=== PATIENT | male | born 1940 | race Caucasian/White ===

== ENCOUNTER → 2019-01-22 | Outpatient (CLI) | payer MEDICARE, OTHER ==
--- NOTE | 2019-01-22 15:08 | Diagnostic Imaging Report ---
PROCEDURE: MRI left upper extremity without contrast. TECHNIQUE: Multiplanar, multisequence non contrast-enhanced MRI of the left upper extremity was accomplished. INDICATION: Fall three and a half months ago with left shoulder pain COMPARISON: None FINDINGS: No acute fracture is seen in the left shoulder. There is a small left glenohumeral joint effusion. There are severe degenerative changes in the acromioclavicular joint. There are mild degenerative changes in the glenohumeral joint. There is superior migration of the humeral head which contacts the undersurface of the acromion. There is remodeling of the undersurface of the acromion. There is a large full-thickness rotator cuff tear of the left shoulder involving the supraspinatus and infraspinatus and subscapularis tendons, measuring approximately 5 cm in width. There is retraction to the level of the glenohumeral joint. There is moderate edema in the infraspinatus muscle and mild in the supraspinatus muscle. There is mild atrophy of the supraspinatus and infraspinatus musculature as well. The teres minor tendon is intact. The long head of the biceps tendon demonstrates longitudinal split tearing proximally, but is within the bicipital groove. The glenoid labrum is suboptimally evaluated in the absence of intra-articular contrast although there is likely degeneration. No para-labral cyst is seen. The acromion has a curved undersurface with subacromial remodeling/osteophyte. The coracoclavicular and coracoacromial ligaments are intact. No lymphadenopathy or fluid collections are seen. IMPRESSION: 1. Large full-thickness left rotator cuff tear with retraction. There is edema and atrophy in the supraspinatus and infraspinatus musculature. 2. Superior migration of the humeral head with subacromial remodeling/spurring. Marked degenerative changes in the acromioclavicular joint. 3. Short segment longitudinal split tearing of the proximal long head of the biceps tendon. Dictated by: Dictated on workstation # [id number]
== END ==
LOC: RAD 13:01
PROVIDERS: ATTEND Pediatrics
DX: S46.012A Strain of muscle(s) and tendon(s) of the rotator cuff of left shoulder, initial encounter (principal); S46.112A Strain of muscle, fascia and tendon of long head of biceps, left arm, initial encounter; M19.012 Primary osteoarthritis, left shoulder
CPT/HCPCS: 73221

== ENCOUNTER 2022-06-07 13:33 | Emergency (ER) | payer MEDICARE, OTHER ==
[~2022-06-07] VITALS: Ht 175.3 cm; Wt 75.7 kg
--- NOTE | 2022-06-07 13:46 | ED Fall/Injury ---
General Chief Complaint: Trauma-Non Activation Stated Complaint: FALL History of Present Illness Date Seen by Provider: Jun 07, 2022 Time Seen by Provider: 13:46 Initial Comments 81-year-old male presents following a fall. Patient reports he was walking and tripped over a curb fell and hit his head. He has small little laceration across the bridge of his nose. Small laceration above his left eyelid with some swelling and multiple abrasions across his left forehead and periorbital region. Patient denies loss of consciousness. He reports little bit of pain in his left hand but feels that it is fine. Patient denies any nausea, vomiting or other systemic complaints Allergies and Home Medications Allergies Coded Allergies: No Known Drug Allergies (Unverified , 06/07/22) Patient Home Medication List Home Medication List Reviewed: Yes Review of Systems Review of Systems Constitutional: no symptoms reported Eyes: See HPI Ears, Nose, Mouth, Throat: see HPI Respiratory: no symptoms reported Cardiovascular: no symptoms reported Gastrointestinal: no symptoms reported Genitourinary: no symptoms reported Musculoskeletal: see HPI Skin: see HPI Physical Exam Vital Signs Vital Signs - First Documented Capillary Refill : Height, Weight, BMI Height: '" Weight: lbs. oz. kg; BMI Method: General Appearance: no apparent distress HEENT: PERRL/EOMI, other (Small laceration/puncture wound across the bridge of the nose) Neck: non-tender, full range of motion, supple Cardiovascular: normal peripheral pulses, regular rate, rhythm Respiratory: chest non-tender, lungs clear, normal breath sounds Gastrointestinal: non tender, soft Extremities: normal range of motion, non-tender Neurologic/Psychiatric: alert, normal mood/affect, oriented x 3 Skin: other (Multiple large abrasions left forehead and periorbital region with swelling) Rafael Coma Score Best Eye Response: (4) Open Spontaneously Best Verbal Response: (5) Oriented Best Motor Response: (6) Obeys Commands Procedures/Interventions Wound Location: Nose Wound's Depth, Shape: superficial, stellate Wound Explored: clean Betadine Prep?: No Wound Debrided: minimal Other Closure Supply: Wound Adhesive Patient tolerated well with no immediate complication Progress/Results/Core Measures Results/Orders My Orders Orders - ANTONIA NICHOLS DO Ct Head Wo (06/07/22 13:52) Vital Signs/I&O 06/07/22 06/07/22 13:35 13:35 Temp 36.0 36.0 Pulse 65 65 Resp 18 18 B/P (MAP) 159/77 (104) 159/77 (104) Pulse Ox 99 O2 Delivery Room Air Room Air Progress Progress Note : Progress Note Patient with no acute intracranial findings. Patient with small laceration bridge of his nose that was closed with adhesive. . Patient declined x-ray of his hand. Patient is ready be discharged home. He is stable upon discharge Diagnostic Imaging Diagonstic Imaging: CT Plain Films/CT/US/NM/MRI: head Comments CT HEAD WO INDICATION: Fall, with injury to head, patient is on blood thinners. TECHNIQUE: Multiple contiguous axial images were obtained through the brain without the use of intravenous contrast. Auto Exposure Controls were utilized during the CT exam to meet ALARA standards for radiation dose reduction. There is no previous study for comparison. FINDINGS: There are diffuse atrophic changes. There are moderate low-density changes in the deep white matter compatible with chronic ischemic change. There is no subdural or epidural collection. There is no acute intracranial hemorrhage. There are chronic changes with multiple calcifications in atrophic right globe. Calvarial windows show no fracture. There is a left frontal scalp hematoma. IMPRESSION: Atrophic changes and chronic ischemic changes in the deep white matter. No acute intracranial hemorrhage or acute intracranial finding. Atrophic right globe with chronic calcifications. Left frontal scalp hematoma with no underlying fracture. Reviewed: Reviewed by Me, Reviewed/Discussed Departure Impression Primary Impression: Traumatic hematoma of forehead Qualified Codes: S00.83XA - Contusion of other part of head, initial encoun ter Additional Impressions: Fall Qualified Codes: W19.XXXA - Unspecified fall, initial encounter Multiple abrasions Laceration of nose without complication Qualified Codes: S01.21XA - Laceration without foreign body of nose, initial encounter Disposition: HOME, SELF-CARE Condition: Stable Departure-Patient Inst. Referrals: LESLYE MOONEY MD (PCP/Family) Primary Care Physician Patient Instructions: Abrasions ED, Wound Care ED, Minor Head Injury, Adult ED Add. Discharge Instructions: Keep wounds clean with warm soapy water. You may use Dermoplast spray on your abrasions to help with pain, you may apply thin layer of Vaseline after 24- hours. Follow-up with your primary care provider as needed All discharge instructions reviewed with patient and/or family. Voiced understanding. ANTONIA NICHOLS DO Jun 07, 2022 13:46
--- NOTE | 2022-06-07 14:30 | Diagnostic Imaging Report ---
INDICATION: Fall, with injury to head, patient is on blood thinners. TECHNIQUE: Multiple contiguous axial images were obtained through the brain without the use of intravenous contrast. Auto Exposure Controls were utilized during the CT exam to meet ALARA standards for radiation dose reduction. There is no previous study for comparison. FINDINGS: There are diffuse atrophic changes. There are moderate low-density changes in the deep white matter compatible with chronic ischemic change. There is no subdural or epidural collection. There is no acute intracranial hemorrhage. There are chronic changes with multiple calcifications in atrophic right globe. Calvarial windows show no fracture. There is a left frontal scalp hematoma. IMPRESSION: Atrophic changes and chronic ischemic changes in the deep white matter. No acute intracranial hemorrhage or acute intracranial finding. Atrophic right globe with chronic calcifications. Left frontal scalp hematoma with no underlying fracture. Dictated by: Dictated on workstation # [id number]
[2022-06-07 14:50] VITALS: BP 139/97
== END 2022-06-07 14:50 | disposition home or self-care (01) ==
LOC: EDUNIT# 13:33 → ER FS 13:34
DX: S01.21XA Laceration without foreign body of nose, initial encounter (principal); W01.0XXA Fall on same level from slipping, tripping and stumbling without subsequent striking against object, initial encounter; Y93.01 Activity, walking, marching and hiking
CPT/HCPCS: 70450

== ENCOUNTER 2022-08-15 13:36 | Emergency (ER) | payer MEDICARE, OTHER ==
[~2022-08-15] VITALS: Ht 175 cm; Wt 75.0 kg
[2022-08-15 13:44] VITALS: BP 144/72
--- NOTE | 2022-08-15 13:55 | ED Fall/Injury ---
General Chief Complaint: Laceration Stated Complaint: NASAL LAC Source: patient History of Present Illness Date Seen by Provider: Aug 15, 2022 Time Seen by Provider: 13:40 Initial Comments 81-year-old male presenting with abrasions to his face and laceration to his upper part of his nose. He was golfing and while walking down a sloped decline on the course he had a heavy window behind him head made him go faster down the slope and he ended up tripping and falling. His sunglasses he was wearing had cut into his nose. He denies any loss of consciousness. 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 He has not taken an oral anticoagulant. His last tetanus booster was 6 to 7 years ago. He denies having any other pain or injuries in his extremities, chest, belly. He denies having headache or neck pain. He has some discomfort to the face and nose where the cut is. Bleeding is controlled on arrival to the ED. Location Injury Occurred: Golf course Occurred: just prior to arrival Severity: mild Injuries/Pain Location: face (Abrasions to forehead and nose with laceration on the upper part of his nose.) Context: lost balance Loss of Consciousness: no loss of consciousness Modifying Factors: Worse With Movement Associated Symptoms (Fall): No Abdominal Pain, No Chest Pain, No Confusion, No Dizziness, No Headache, No Lightheadedness, No Muscle Spasms, No Nausea/Vomiting, No Neck Pain, No Ringing in Ears, No Seizures, No Shortness of Air, No Slurred Speech, No Trouble Walking, No Vision Changes Allergies and Home Medications Allergies Coded Allergies: No Known Drug Allergies (Unverified , 06/07/22) Patient Home Medication List Home Medication List Reviewed: Yes Review of Systems Review of Systems Constitutional: No chills, No diaphoresis, No dizziness, No fever Eyes: Blindness (Chronic in the right eye); Denies Photophobia, Denies Vision Changes Ears, Nose, Mouth, Throat: denies ear pain, denies ear discharge; nose pain (Mild pain to the top of his nose where he has a laceration.); denies nose discharge, denies epistaxis, denies mouth pain Respiratory: No cough, No short of breath Cardiovascular: No chest pain Gastrointestinal: No nausea, No vomiting Genitourinary: No dysuria Musculoskeletal: No back pain, No joint pain, No neck pain Skin: see HPI Psychiatric/Neurological: Denies Headache, Denies Numbness, Denies Paresthesia Past Natqipx-Drdmzx-Pallqb Hx Patient Social History Tobacco Use?: No Use of E-Cig and/or Vaping dev: No Substance use?: No Alcohol Use?: No Pt feels they are or have been: Unable to obtain Past Medical History Surgery/Hospitalization HX: Hyperlipidemia, hypertension Physical Exam Vital Signs Vital Signs - First Documented 08/15/22 13:44 Temp 36.4 Pulse 79 Resp 16 B/P (MAP) 144/72 (96) Pulse Ox 96 O2 Delivery Room Air Capillary Refill : Height, Weight, BMI Height: '" Weight: lbs. oz. kg; 24.00 BMI Method: General Appearance: WD/WN, no apparent distress, other (Abrasions on his forehead and nose with a 1.7 cm laceration to the top of his nose. He has no sims sign, raccoon sign, CSF otorrhea, CSF rhinorrhea.) HEENT: TMs normal; No photophobia; other (Negative hemotympanum, chronic blindness in the right eye with scarring left pupil was reactive and patient states normal vision) Neck: non-tender, full range of motion, supple, normal inspection Cardiovascular: normal peripheral pulses, regular rate, rhythm Respiratory: chest non-tender, lungs clear, normal breath sounds Gastrointestinal: normal bowel sounds, non tender, soft, no pulsatile mass Extremities: normal range of motion, non-tender, normal capillary refill Neurologic/Psychiatric: decorating instructor II-XII nml as tested, no motor/sensory deficits, alert, normal mood/affect, oriented x 3 Skin: warm/dry, other (Multiple abrasions to the forehead and nose with a 1.7 cm laceration to the upper part of his nose. When cleaning his hands noted to have 8 mm laceration to the base of his middle finger on the right hand between the middle and ring fingers.) Rafael Coma Score Best Eye Response: (4) Open Spontaneously Best Verbal Response: (5) Oriented Best Motor Response: (6) Obeys Commands Rafael Total: 15 Procedures/Interventions Wound Location: Nose Wound Length (cm): 1.7 Wound's Depth, Shape: linear, contused tissue, sub Q Wound Explored: clean Other Closure Supply: Steri Strip 1/4", Mastisol, Wound Adhesive Progress After obtaining verbal consent from the patient the wound was cleaned with chlor hexidine scrub soap and sterile water. He had no foreign bodies visualized in the wound. He does not have any crepitus or pain with palpation of the nose to indicate a fracture. He denied having a loss of consciousness. Bleeding was controlled with pressure after cleaning. Using tissue adhesive the wound edges were approximated and stay well approximated with glue. Also applied Mastisol with 2 1/4 inch Steri-Strips over the wound to help give it extra support. Counseled on management and follow-up. Advised to avoid applying antibiotic ointment or greasy products as that would make the glue come off too early. Counseled to watch for signs of infection. Check back to clinic for continued concerns. Wound Location: Upper Extremities (right hand base of middle finger between middle and ring fingers) Wound Length (cm): 0.8 Wound's Depth, Shape: linear, contused tissue, sub Q Wound Explored: clean Anesthesia: 1% Lidocaine Volume Anesthetic (ccs): 2 Suture: Ethlion Suture Size: 5-0 Number of Sutures: 2 Layer Closure?: 1 Sterile Dressing Applied?: Yes Progress After obtaining verbal consent from the patient the wound was anesthetized with 1% plain lidocaine by infiltrating a total of 2 mL in the wound edges. The wound was then further cleaned with chlorhexidine scrub soap and sterile water. He had no foreign bodies. Using a 5-0 Ethilon 2 simple interrupted stitches were placed to approximate the wound edges. Patient tolerated procedure well without any immediate complication. Counseled on management and care of the laceration. Advised to have the stitches removed in 7 to 10 days. Watch for signs of infection. Keep clean with soap and water but do not soak the wound. May apply antibiotic ointment and keep covered if it might get dirty. Progress/Results/Core Measures Results/Orders My Orders Orders - ALECIA KRISHNA MD Dipht,Pertuss(Acell),Tet Adult (Boostrix (08/15/22 14:00) Medications Given in ED Current Medications Medications Dose Ordered Sig/Ford Route Start Time Stop Time Status Last Admin Dose Admin Diphtheria/ Tetanus/Acell Pertussis 0.5 ml ONCE ONCE IM 08/15/22 14:00 08/15/22 14:01 DC 2/6/23 13:54 0.5 ML Vital Signs/I&O 08/15/22 13:44 Temp 36.4 Pulse 79 Resp 16 B/P (MAP) 144/72 (96) Pulse Ox 96 O2 Delivery Room Air Progress Progress Note : Progress Note Patient has potential diagnosis of facial fracture, intracranial hemorrhage, skull fracture, extremity fracture. On exam he had abrasions to his face and nose with a 1.7 cm laceration on the top of his nose. We will update his tetanus booster since he has not had 1 within the last 5 years. Clean the wound with chlorhexidine scrub soap and sterile water. Verbal consent obtained to apply tissue adhesive and Steri- Strips to approximate the wound edges on his nose. When cleaning his hands it was noted that he also had a small laceration between his right ring and middle fingers. As this wound does gape open he was counseled that without stitches it would have an increased risk for infection and bleeding and take longer to heal. He consented to placing stitches and counseled to have them out in 7 to 10 days. May return here to ED or see pcp. Return or be seen sooner if having signs of infection. As he was not taking an oral anticoagulant will defer CT scan of head, face or cervical spine. Return or be seen sooner if having headache, vision change, nausea/vomiting. Departure Impression Primary Impression: Laceration of nose without complication Qualified Codes: S01.21XA - Laceration without foreign body of nose, initial encounter Additional Impressions: Abrasion of face without infection Fall on same level, unspecified, initial encounter Laceration without foreign body of right hand, initial encounter Disposition: 01 HOME, SELF-CARE Condition: Stable Departure-Patient Inst. Decision time for Depature: 14:08 Referrals: LESLYE MOONEY MD (PCP) Primary Care Physician Patient Instructions: Laceration Repair With Glue ED, Abrasions ED, Laceration Repair With Stitches ED Add. Discharge Instructions: Keep wounds clean with soap and water. May apply antibiotic ointment to the forehead abrasions but do NOT apply to the glue on your cut on the nose. The ointment will make the glue come off too soon and the wound may reopen. The glue and surgical tape will peel off on their own in about 5 to 7 days. Ice 20-30 minutes every few hours as needed for pain and swelling. May take Acetaminophen or Ibuprofen if needed for pain. Check back with primary care provider for continued concerns. Have the stitches removed from hand in 7 to 10 days with primary care provider or here in Emergency department. All discharge instructions reviewed with patient and/or family. Voiced understanding. ALECIA KRISHNA MD Aug 15, 2022 13:55
[2022-08-15] MEDS ORDERED: TETANUS,DIPTH,PERTUSS P/F (BOOSTRIX) 0.5 ML VIAL IM ONE (14:00)
== END 2022-08-15 14:35 | disposition home or self-care (01) ==
LOC: EDUNIT# 13:36 → ER FS 13:37
DX: S01.21XA Laceration without foreign body of nose, initial encounter (principal); S61.212A Laceration without foreign body of right middle finger without damage to nail, initial encounter; S00.81XA Abrasion of other part of head, initial encounter; H54.61 Unqualified visual loss, right eye, normal vision left eye; Z23 Encounter for immunization; W01.0XXA Fall on same level from slipping, tripping and stumbling without subsequent striking against object, initial encounter; Y93.01 Activity, walking, marching and hiking; Y92.39 Other specified sports and athletic area as the place of occurrence of the external cause
CPT/HCPCS: 12011; 12041; 90715

== ENCOUNTER 2023-01-11 12:54 | Emergency (ER) | payer MEDICARE, OTHER ==
[~2023-01-11] VITALS: Ht 175.3 cm; Wt 68.0 kg
[2023-01-11] MEDS ORDERED: ONDANSETRON 4 MG/2 ML (SDV) Z0FRAN IVP STA (13:19)
[2023-01-11] MEDS ORDERED: ACETAMINOPHEN 325 MG TABLET PO STA (13:19)
[2023-01-11] MEDS ORDERED: NS IV 1000 ML 1,000 ML IV STA ×2 (13:21→14:19)
[2023-01-11 13:26] LABS: BASOPHILS % (AUTO) 0 % (0-10); EOSINOPHILS % (AUTO) 0 % (0-10); HEMATOCRIT 45 % (40-54); HEMOGLOBIN 15.7 g/dL (13.3-17.7); LYMPHOCYTES # (AUTO) 0.5 10^3/uL (1.0-4.0); LYMPHOCYTES % (AUTO) 4 % (12-44); MEAN CORPUSCULAR HEMOGLOBIN 30 pg (25-34); MEAN CORPUSCULAR HGB CONC 35 g/dL (32-36); MEAN CORPUSCULAR VOLUME 86 fL (80-99); MEAN PLATELET VOLUME 10.3 fL (9.0-12.2); MONOCYTES # (AUTO) 0.6 10^3/uL (0.0-1.0); MONOCYTES % (AUTO) 5 % (0-12); NEUTROPHILS # (AUTO) 12.5 10^3/uL (1.8-7.8); NEUTROPHILS % (AUTO) 91 % (42-75); PLATELET COUNT 238 10^3/uL (130-400); WHITE BLOOD COUNT 13.7 10^3/uL (4.3-11.0)
--- NOTE | 2023-01-11 13:34 | ED General ---
General Chief Complaint: General Problems/Pain Stated Complaint: GEN WEAKNESS; AMS Nursing Triage Note: PT AMBULATE FROM PARKING LOT TO WAITING ROOM AND THEN W/C TO PT ROOM WITH C/O LACK OF ENERGY FOR "SEVERAL MONTHS", GENERAL WEAKNESS AND DIFFICULTY VERBALLY EXPRESSING HIMSELF "FOR A FEW WEEKS" AND AN UNSTEADY GAIT STARTING THIS MORNING. PT REPORTS HE HAS A REGULAR APPT WITH PCP ON 02/11/23 AND WAS GOING TO WAIT UNTIL THEN TO DISCUSS GEN WEAKNESS. REPORTS PT HAS BEEN LOSING WEIGHT OVER THE PREVIOUS SEVERAL MONTHS. Source of Information: Patient, Spouse History of Present Illness Date Seen by Provider: Jan 11, 2023 Time Seen by Provider: 12:55 Initial Comments 82-year-old male presenting with his spouse to the emergency department. She complains that he has had generalized weakness and lack of energy for several months. For the last few days to few weeks he has been having difficulty verbally expressing himself. He has a more unsteady gait today. She denies any fall in the last few days. She feels like he has had a weight loss over the last several months. They have an appointment to see Dr. Mooney, his primary care provider, on February 11. They were going to wait until then to discuss the general weakness but when he was doing worse today they brought him to the emergency department. He was noted that he has a fever of 38.3 Celsius here in the emergency department. Otherwise he denies fever and chills at home, nausea, vomiting, diarrhea, constipation, pain with urination, blood in his urine or stool, fall preceding the symptoms. He is slow to answer questions. He is hard of hearing but appears to have a hearing aid in place. He denies having chest pain, abdominal pain, headache, change in vision. 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 Severity: Moderate Associated Systoms: No Chest Pain, No Cough, No Diaphoresis; Fever/Chills (today in ED temp of 38.3 C); No Headaches; Loss of Appetite, Malaise; No Nausea/Vomiting, No Rash, No Seizure, No Shortness of Air, No Syncope; Weakness (generalized) Allergies and Home Medications Allergies Coded Allergies: No Known Drug Allergies (Unverified , 06/07/22) Patient Home Medication List Home Medication List Reviewed: Yes Review of Systems Review of Systems Constitutional: see HPI; No chills, No diaphoresis; fever, malaise, weakness EENTM: No nose congestion, No throat pain Respiratory: No cough, No short of breath, No stridor Cardiovascular: No chest pain, No edema, No syncope Gastrointestinal: No abdominal pain, No constipation, No diarrhea, No nausea, No vomiting Genitourinary: No dysuria, No frequency, No hematuria Musculoskeletal: no symptoms reported Skin: No rash Psychiatric/Neurological: See HPI; Denies Headache Past Sshfosx-Tcehtn-Ikywxw Hx Patient Social History Tobacco Use?: No Smoking Status: Never a Smoker Smokeless Tobacco Frequency: Never a User Use of E-Cig and/or Vaping dev: No Use of E-Cig and/or Vaping Zeus: Never a User Substance use?: No Alcohol Use?: Yes Alcohol type: Beer Alcohol Frequency: Once in a while Pt feels they are or have been: No Past Medical History Surgery/Hospitalization HX: Hyperlipidemia, hypertension Physical Exam Vital Signs Vital Signs - First Documented 01/11/23 12:59 Temp 38.6 Pulse 91 Resp 21 B/P (MAP) 125/78 (94) O2 Delivery Room Air Capillary Refill : Less Than 3 Seconds Height, Weight, BMI Height: '" Weight: lbs. oz. kg; 22.00 BMI Method: General Appearance: No Apparent Distress, WD/WN Eyes: Right Eye Abnormal Pupil (scarring to right eye); Left Eye PERRL; Bilateral Eye EOMI HEENT: Pharynx Normal Neck: Full Range of Motion, Normal Inspection, Non Tender, Supple Respiratory: Chest Non Tender, Lungs Clear, Normal Breath Sounds, No Accessory Muscle Use, No Respiratory Distress Cardiovascular: Regular Rate, Rhythm, Normal Peripheral Pulses Gastrointestinal: Normal Bowel Sounds, No Pulsatile Mass, Non Tender, Soft Rectal: Deferred Extremity: Normal Capillary Refill, Normal Inspection, Normal Range of Motion, Non Tender, No Calf Tenderness, No Pedal Edema Neurologic/Psychiatric: Alert, Oriented x3, 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 as Tested, Other (slow to answer questions) Skin: Normal Color, Warm/Dry Focused Exam Lactate Level 01/11/23 13:10: Lactic Acid Level 2.69*H Lactic Acid Level Laboratory Tests Test 01/11/23 13:10 Lactic Acid Level 2.69 MMOL/L (0.50-2.00) *H Procedures/Interventions Suture Size: 5-0 Progress/Results/Core Measures Suspected Sepsis SIRS Temperature: Pulse: 91 Respiratory Rate: 21 Laboratory Tests 01/11/23 13:10: White Blood Count 13.7H Blood Pressure 125 /78 Mean: 94 01/11/23 13:10: Lactic Acid Level 2.69*H Laboratory Tests 01/11/23 13:10: Creatinine 0.99, Platelet Count 238, Total Bilirubin 1.0 Results/Orders Lab Results Laboratory Tests Test 01/11/23 13:10 01/11/23 13:17 Range/Units White Blood Count 13.7 H 4.3-11.0 10^3/uL Red Blood Count 5.17 4.30-5.52 10^6/uL Hemoglobin 15.7 13.3-17.7 g/dL Hematocrit 45 40-54 % Mean Corpuscular Volume 86 80-99 fL Mean Corpuscular Hemoglobin 30 25-34 pg Mean Corpuscular Hemoglobin Concent 35 32-36 g/dL Red Cell Distribution Width 12.9 10.0-14.5 % Platelet Count 238 130-400 10^3/uL Mean Platelet Volume 10.3 9.0-12.2 fL Immature Granulocyte % (Auto) 0 % Neutrophils (%) (Auto) 91 H 42-75 % Lymphocytes (%) (Auto) 4 L 12-44 % Monocytes (%) (Auto) 5 0-12 % Eosinophils (%) (Auto) 0 0-10 % Basophils (%) (Auto) 0 0-10 % Neutrophils # (Auto) 12.5 H 1.8-7.8 10^3/uL Lymphocytes # (Auto) 0.5 L 1.0-4.0 10^3/uL Monocytes # (Auto) 0.6 0.0-1.0 10^3/uL Eosinophils # (Auto) 0.0 0.0-0.3 10^3/uL Basophils # (Auto) 0.0 0.0-0.1 10^3/uL Immature Granulocyte # (Auto) 0.1 0.0-0.1 10^3/uL Neutrophils % (Manual) 84 % Lymphocytes % (Manual) 3 % Monocytes % (Manual) 5 % Eosinophils % (Manual) 0 % Basophils % (Manual) 0 % Band Neutrophils 8 % Platelet Estimate NORMAL Blood Morphology Comment NORMAL Sodium Level 132 L 135-145 MMOL/L Potassium Level 3.8 3.6-5.0 MMOL/L Chloride Level 94 L 98-107 MMOL/L Carbon Dioxide Level 24 21-32 MMOL/L Anion Gap 14 5-14 MMOL/L Blood Urea Nitrogen 14 7-18 MG/DL Creatinine 0.99 0.60-1.30 MG/DL Estimat Glomerular Filtration Rate 76 BUN/Creatinine Ratio 14 Glucose Level 134 H 70-105 MG/DL Lactic Acid Level 2.69 *H 0.50-2.00 MMOL/L Calcium Level 9.9 8.5-10.1 MG/DL Corrected Calcium 9.8 8.5-10.1 MG/DL Total Bilirubin 1.0 0.1-1.0 MG/DL Aspartate Amino Transf (AST/SGOT) 16 5-34 U/L Alanine Aminotransferase (ALT/SGPT) 15 0-55 U/L Alkaline Phosphatase 82 40-136 U/L Troponin I < 0.30 <0.30 NG/ML C-Reactive Protein 5.68 H <0.50 MG/DL Pro-B-Type Natriuretic Peptide 356.3 <450.0 PG/ML Total Protein 6.7 6.4-8.2 GM/DL Albumin 4.1 3.2-4.5 GM/DL Influenza Type A (RT-PCR) Not Detected Not Detecte Influenza Type B (RT-PCR) Not Detected Not Detecte SARS-CoV-2 RNA (RT-PCR) Not Detected Not Detecte My Orders Orders - ALECIA KRISHNA MD Ondansetron Injection (Zofran Injectio (01/11/23 13:19) Acetaminophen Tablet/Caplet (Tylenol T (01/11/23 13:19) Cbc With Automated Diff (01/11/23 13:19) Comprehensive Metabolic Panel (01/11/23 13:19) Blood Culture (01/11/23 13:19) Ua Culture If Indicated (01/11/23 13:19) Chest 1 View Ap/Pa Only (01/11/23 13:19) Ed Iv/Invasive Line Start (01/11/23 13:19) Crp Fs (01/11/23 13:19) Lactic Acid Analyzer (01/11/23 13:19) Covid 19 Inhouse Test (01/11/23 13:19) Influenza A And B By Pcr (01/11/23 13:19) Ct Head Wo (01/11/23 13:19) Ns Iv 1000 Ml (Sodium Chloride 0.9%) (01/11/23 13:21) Manual Differential (01/11/23 13:10) Troponin I Fs (01/11/23 13:40) Probnp Fs (01/11/23 13:40) Ceftriaxone Iv/Im (Rocephin Iv/Im) (01/11/23 14:19) Azithromycin Tablet (Zithromax Tablet) (01/11/23 14:19) Ns Iv 1000 Ml (Sodium Chloride 0.9%) (01/11/23 14:19) Vital Signs/I&O 01/11/23 01/11/23 12:59 13:41 Temp 38.6 38.6 Pulse 91 Resp 21 B/P (MAP) 125/78 (94) O2 Delivery Room Air Capillary Refill : Less Than 3 Seconds Blood Pressure Mean: 94 Progress Note #1: Progress Note Potential diagnosis of sepsis, pneumonia, cystitis, pyelonephritis, prostatitis, stroke, TIA, malignancy. Establish peripheral IV access and send labs for complete blood count, comprehensive metabolic profile, blood cultures, lactic acid, urinalysis, troponin, proBNP. Obtain a chest x-ray to look for signs of infiltrate or effusion or pathology in the chest to account for symptoms. CT scan of the head without IV contrast looking for signs of intracranial hemorrhage, mass, tumor, prior stroke or TIA findings. Administer normal saline 1 L IV fluid bolus for hydration. Send nasal swab for COVID and influenza. Patient had his nose swab for COVID and influenza he had an episode of choking and gagging where he felt like he was going to throw up. A dose of Zofran 4 mg IV was ordered to try and help with this. Progress Note #2: Time: 13:41 Progress Note His complete blood count showed mild elevation of his white blood cells to 13.7 with a left shift of 90% neutrophils. He had normal hemoglobin of 15.7. His platelets were also normal at 238. Hemodynamically he appears stable with a blood pressure of 125/78 and heart rate in the 80s sinus rhythm. Progress Note #3: Time: 13:54 Progress Note On my personal interpretation and review of his 1 view chest x-ray looks like he has had right lower lobe pneumonia. On his CT scan of the head without contrast I did not appreciate any acute intracranial hemorrhage or mass. His comprehensive metabolic profile showed mild hyponatremia with sodium of 132. His potassium was low normal at 3.8. He had a normal creatinine of 0.99. Glucose slightly elevated to 134. He had mild elevation of his lactic acid to 2.69 and CRP to 5.68. Along with his elevated white blood cell count of 13.7 he did have a manual differential done which showed 84% neutrophils and 8% bands. His swab for COVID and influenza was negative for all viruses. 1408 I reviewed the radiologist report on the CT scan of the head without contrast in the also did not see any acute process. His 1 view chest x-ray was read out as showing right-sided pneumonia. His oxygen saturation has been 98 to 92% on room air. His heart rate continues to be in the 80s and appears to be sinus rhythm on the cardiac threat monitoring analyst. His blood pressure was 158/70. We will start him on community-acquired antibiotics of Rocephin and azithromyci n. We will check with Dr. Mooney to see if he is on-call and available if he would like to admit the patient with his elevated white blood cell count, fever, elevated lactic acid. Diagnostic Imaging Diagonstic Imaging: CT Plain Films/CT/US/NM/MRI: head Comments [facility], [place] NAME: DEMOND JIANG [facility] REC#: [id number] PT STATUS: REG ER : 1940 PHYSICIAN: ALECIA KRISHNA MD ADMIT DATE: 01/11/23/ER FS Draft Date of Exam:01/11/23 CT HEAD WO INDICATION: Weakness and aphasia TECHNIQUE: Multiple contiguous axial images were obtained through the brain without the use of intravenous contrast. Auto Exposure Controls were utilized during the CT exam to meet ALARA standards for radiation dose reduction. Noncontrast study performed and compared with 06/07/2022 There are moderate generalized atrophic changes. There are patchy low-density changes in the deep white matter compatible with chronic ischemic change. There is no acute hemorrhage or subdural or epidural collection. The ventricles are normal in size and position. There is partial atrophy of the right eye with calcifications in the midportion of the right globe. Calvarial windows appear unremarkable. IMPRESSION: Atrophic changes and chronic changes in deep white matter with no acute intracranial abnormality. Dictated on workstation # [id number] Dict: 01/11/23 1355 Trans: 01/11/23 1359 ALONDRA [id number] Interpreted by: MAY TRIMBLE MD Electronically signed by: Reviewed: Reviewed by Me Diagonstic Imaging: Xray Plain Films/CT/US/NM/MRI: chest Comments NAME: DEMOND JIANG MED REC#: [id number] PT STATUS: REG ER : 1940 PHYSICIAN: ALECIA KRISHNA MD ADMIT DATE: 01/11/23/ER FS Draft Date of Exam:01/11/23 CHEST 1 VIEW AP/PA ONLY HISTORY: Fever, weakness. TECHNIQUE: Frontal view of the chest. COMPARISON: None. FINDINGS: There are patchy airspace opacities in the right lung, particularly the right lung base. There is no pleural effusion or pneumothorax. The cardiac silhouette is normal in size. 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 IMPRESSION: 1. Airspace opacities in the right lung, likely infection. Dictated on workstation # [id number] Dict: 01/11/23 1400 Trans: 01/11/23 1403 AS6 Interpreted by: JOSESITO CARBAJAL MD Electronically signed by: Reviewed: Reviewed by Me Departure Impression Primary Impression: Sepsis Qualified Codes: A41.9 - Sepsis, unspecified organism Additional Impressions: Fever in adult Slow rate of speech Generalized weakness Pneumonia of right lower lobe due to infectious organism Disposition: [facility]-TRM HOSP Condition: Stable Transfer Transfer Reason: Patient preference Time Spoke to Accepting Phy: 14:25 Transfer Progress Notes Discussed with Dr. Leslye Mooney, patient's primary care provider. Reviewed the patient's presentation with fever and increased weakness. He has elevated white blood cell count and lactic acid of 2. 6 9. As tested showing infiltrate to the right lower lobe for pneumonia. Have started him on Rocephin and Zithromax and he has had an order for 2 L of IV fluids for hydration. He is h emodynamically stable with blood pressure in the 140s to 150s systolic and heart rate remains in the 80s and sinus rhythm. Oxygen saturation is 90 to 92% on room air. He excepted the patient provided they had a room available at the hospital. I called and spoke with the nurses station at [facility] and they advised that they do have a bed available. Will proceed with medications and fluids as above and arrange for transport to [place] after they provide a room assignment Transfer Facility: [facility] Method of Transfer: EMS Departure-Patient Inst. Referrals: LESLYE MOONEY MD (PCP) Primary Care Physician ALECIA KRISHNA MD Jan 11, 2023 13:34
[2023-01-11 13:52] LABS: BAND NEUTROPHILS 8 %; BASOPHILS % (MANUAL) 0 %; EOSINOPHILS % (MANUAL) 0 %; LYMPHOCYTES % (MANUAL) 3 %; MONOCYTES % (MANUAL) 5 %; NEUTROPHILS % (MANUAL) 84 %; PLATELET ESTIMATE NORMAL; RBC MORPH NORMAL
[2023-01-11 13:53] LABS: CREATININE SERUM 0.99 MG/DL (0.60-1.30); POTASSIUM 3.8 MMOL/L (3.6-5.0)
[2023-01-11 13:54] LABS: ALBUMIN 4.1 GM/DL (3.2-4.5); CALCIUM 9.9 MG/DL (8.5-10.1); TOTAL PROTEIN 6.7 GM/DL (6.4-8.2)
--- NOTE | 2023-01-11 13:59 | Diagnostic Imaging Report ---
INDICATION: Weakness and aphasia TECHNIQUE: Multiple contiguous axial images were obtained through the brain without the use of intravenous contrast. Auto Exposure Controls were utilized during the CT exam to meet ALARA standards for radiation dose reduction. Noncontrast study performed and compared with 06/07/2022 There are moderate generalized atrophic changes. There are patchy low-density changes in the deep white matter compatible with chronic ischemic change. There is no acute hemorrhage or subdural or epidural collection. The ventricles are normal in size and position. There is partial atrophy of the right eye with calcifications in the midportion of the right globe. Calvarial windows appear unremarkable. IMPRESSION: Atrophic changes and chronic changes in deep white matter with no acute intracranial abnormality. Dictated by: Dictated on workstation # [id number]
--- NOTE | 2023-01-11 14:03 | Diagnostic Imaging Report ---
HISTORY: Fever, weakness. TECHNIQUE: Frontal view of the chest. COMPARISON: None. FINDINGS: There are patchy airspace opacities in the right lung, particularly the right lung base. There is no pleural effusion or pneumothorax. The cardiac silhouette is normal in size. 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 IMPRESSION: 1. Airspace opacities in the right lung, likely infection. Dictated by: Dictated on workstation # [id number]
[2023-01-11] MEDS ORDERED: cefTRIAXone IV/IM 1,000 MG in NS (IVPB) 50 ML IV STA (14:19)
[2023-01-11] MEDS ORDERED: AZITHROMYCIN 250 MG TAB (ZITHROMAX) PO STA (14:19)
[2023-01-11 15:13] VITALS: BP 145/78
== END 2023-01-11 15:32 | disposition short-term general hospital (02) ==
LOC: EDUNIT# 12:54 → ER FS 12:55
DX: A41.9 Sepsis, unspecified organism (principal); R53.1 Weakness; J18.9 Pneumonia, unspecified organism; E87.1 Hypo-osmolality and hyponatremia; Z20.822 Contact with and (suspected) exposure to COVID-19
CPT/HCPCS: 36415; 70450; 71045; 80053; 83605; 83880; 84484; 85007; 85027; 86141; 87040; 87636

== ENCOUNTER 2023-02-08 08:52 | Emergency (ER) | payer MEDICARE, OTHER ==
[~2023-02-08] VITALS: Ht 175 cm; Wt 65.0 kg
--- NOTE | 2023-02-08 08:55 | ED Neurological Problem ---
General Stated Complaint: UNRESPONSIVE History of Present Illness Date Seen by Provider: Feb 08, 2023 Time Seen by Provider: 08:55 Initial Comments 82-year-old male brought in by EMS. Patient was called for being unresponsive. Patient reports that he was last seen normal around 7 when he went out to lift weights. That she found him laying on the ground and not responding a little after 8. Called EMS. EMS reports when they arrived he was having seizure-like activity on the left and not responding. An IO was placed and he was given 2 Ativan and brought to the ER. Upon arrival to the ER he continued to have left-sided fasciculations/seizure-like activity. He did not follow commands. Patient was taken immediately to CT. Patient was also given an additional 2 of Ativan. Patient is not on any blood thinners but does take aspirin daily. 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 Allergies and Home Medications Allergies Coded Allergies: No Known Drug Allergies (Unverified , 06/07/22) Patient Home Medication List Home Medication List Reviewed: Yes Review of Systems Review of Systems Constitutional: see HPI; No chills, No fever Eyes: See HPI Ears, Nose, Mouth, Throat: see HPI Respiratory: see HPI Cardiovascular: see HPI Gastrointestinal: see HPI Psychiatric/Neurological: See HPI Past [id number] Hx Past Medical History Surgery/Hospitalization HX: Hyperlipidemia, hypertension Physical Exam Vital Signs Vital Signs - First Documented 02/08/23 02/08/23 09:17 09:26 Temp 37.5 Pulse 22 Resp 20 B/P (MAP) 156/82 (106) Pulse Ox 88 O2 Delivery Non Rebreather O2 Flow Rate 15.00 FiO2 100 Capillary Refill : Height, Weight, BMI Height: '" Weight: lbs. oz. kg; 22.00 BMI Method: General Appearance: other (unresponsive, seizure/fasciculation on right ) HEENT: other (baseline abnormal right eye, reactive left, spontanous movement left ) Respiratory: other (Mild rhonchi) Cardiovascular: tachycardia Gastrointestinal: soft Extremities: other (Fasciculations/seizure-like activity on the left, spontaneous movement of right arm. No right leg movement) Neurologic/Psychiatric: other (Does not follow commands, nonresponsive, seizure-like activity) Procedures/Interventions Suture Size: 5-0 Progress/Results/Core Measures Results/Orders Lab Results Laboratory Tests Test 02/08/23 09:05 02/08/23 09:10 02/08/23 09:48 Range/Units White Blood Count 16.3 H 4.3-11.0 10^3/uL Red Blood Count 5.41 4.30-5.52 10^6/uL Hemoglobin 16.3 13.3-17.7 g/dL Hematocrit 46 40-54 % Mean Corpuscular Volume 85 80-99 fL Mean Corpuscular Hemoglobin 30 25-34 pg Mean Corpuscular Hemoglobin Concent 35 32-36 g/dL Red Cell Distribution Width 13.2 10.0-14.5 % Platelet Count 277 130-400 10^3/uL Mean Platelet Volume 10.9 9.0-12.2 fL Immature Granulocyte % (Auto) 0 % Neutrophils (%) (Auto) 92 H 42-75 % Lymphocytes (%) (Auto) 3 L 12-44 % Monocytes (%) (Auto) 5 0-12 % Eosinophils (%) (Auto) 0 0-10 % Basophils (%) (Auto) 0 0-10 % Neutrophils # (Auto) 14.9 H 1.8-7.8 10^3/uL Lymphocytes # (Auto) 0.6 L 1.0-4.0 10^3/uL Monocytes # (Auto) 0.7 0.0-1.0 10^3/uL Eosinophils # (Auto) 0.0 0.0-0.3 10^3/uL Basophils # (Auto) 0.0 0.0-0.1 10^3/uL Immature Granulocyte # (Auto) 0.1 0.0-0.1 10^3/uL Neutrophils % (Manual) 90 % Lymphocytes % (Manual) 2 % Monocytes % (Manual) 4 % Eosinophils % (Manual) 0 % Basophils % (Manual) 0 % Band Neutrophils 4 % Platelet Estimate NORMAL Blood Morphology Comment NORMAL Prothrombin Time 13.7 12.2-14.7 SEC INR Comment 1.0 0.8-1.4 Activated Partial Thromboplast Time 25 24-35 SEC Sodium Level 133 L 135-145 MMOL/L Potassium Level 4.0 3.6-5.0 MMOL/L Chloride Level 92 L 98-107 MMOL/L Carbon Dioxide Level 16 L 21-32 MMOL/L Anion Gap 25 H 5-14 MMOL/L Blood Urea Nitrogen 12 7-18 MG/DL Creatinine 0.94 0.60-1.30 MG/DL Estimat Glomerular Filtration Rate 81 BUN/Creatinine Ratio 13 Glucose Level 244 H 70-105 MG/DL Calcium Level 10.5 H 8.5-10.1 MG/DL Corrected Calcium 10.3 H 8.5-10.1 MG/DL Magnesium Level 1.9 1.6-2.4 MG/DL Total Bilirubin 0.5 0.1-1.0 MG/DL Aspartate Amino Transf (AST/SGOT) 26 5-34 U/L Alanine Aminotransferase (ALT/SGPT) 33 0-55 U/L Alkaline Phosphatase 86 40-136 U/L Troponin I < 0.30 <0.30 NG/ML Total Protein 6.8 6.4-8.2 GM/DL Albumin 4.2 3.2-4.5 GM/DL Glucometer 248 H 70-110 MG/DL Urine Color YELLOW Urine Clarity CLEAR Urine pH 6.0 5-9 Urine Specific [place] 1.025 H 1.016-1.022 Urine Protein 1+ H NEGATIVE Urine Glucose (UA) NEGATIVE NEGATIVE Urine Ketones NEGATIVE NEGATIVE Urine Nitrite NEGATIVE NEGATIVE Urine Bilirubin NEGATIVE NEGATIVE Urine Urobilinogen 0.2 < = 1.0 MG/DL Urine Leukocyte Esterase NEGATIVE NEGATIVE Urine RBC (Auto) TRACE-I H NEGATIVE Urine RBC 2-5 H /HPF Urine WBC 0-2 /HPF Urine Squamous Epithelial Cells RARE /HPF Urine Crystals NONE /LPF Urine Bacteria TRACE /HPF Urine Casts PRESENT /LPF Urine Hyaline Casts 25-50 H /LPF Urine Granular Casts 2-5 H /LPF Urine Mucus MODERATE H /LPF Urine Culture Indicated NO My Orders Orders - NICHOLS,ANTONIA L DO Ct Head Wo (02/08/23 ) Cbc With Automated Diff (02/08/23 09:03) Comprehensive Metabolic Panel (02/08/23 09:03) Magnesium (02/08/23 09:03) Protime With Inr (02/08/23 09:03) Partial Thromboplastin Time (02/08/23 09:03) Troponin I Fs (02/08/23 09:03) Chest 1 View Ap/Pa Only (02/08/23 09:03) Accucheck Stat ONCE (02/08/23 09:03) Ekg Tracing (02/08/23 09:03) O2 (02/08/23 09:03) Monitor-Rhythm Ecg Trace Only (02/08/23 09:03) Levetiracetam Injection (Keppra Injectio (02/08/23 09:15) Levetiracetam Injection (Keppra Injectio (02/08/23 09:09) Levetiracetam 1000 Mg/Ns 100ml (Keppra I (02/08/23 09:09) Ct Angio Head/Neck (02/08/23 09:15) Manual Differential (02/08/23 09:05) Iohexol Injection (Omnipaque 350 Mg/Ml 1 (02/08/23 09:30) Received Contrast (Hold Metformin- Contr (02/08/23 09:30) Ns (Ivpb) 100 Ml (Sodium Chloride 0.9% 1 (02/08/23 09:30) Ua Culture If Indicated (02/08/23 09:45) [place] Cath (02/08/23 09:45) Ns Iv 1000 Ml (Sodium Chloride 0.9%) (02/08/23 10:21) Ceftriaxone Iv/Im (Ceftriaxone Iv/Im) (02/08/23 10:23) Ceftriaxone Iv/Im (Ceftriaxone Iv/Im) (02/08/23 10:27) Medications Given in ED Current Medications Medications Dose Ordered Sig/Ford Route Start Time Stop Time Status Last Admin Dose Admin Iohexol 100 ml ONCE ONCE IV 02/08/23 09:30 02/08/23 09:31 DC 02/08/23 09:39 75 ML Levetiracetam 1500 mg/Sodium Chloride 115 ml @ 210 mls/hr ONCE ONCE IV 02/08/23 09:15 02/08/23 09:47 DC 02/08/23 09:12 210 MLS/HR Sodium Chloride 100 ml ONCE ONCE IV 02/08/23 09:30 02/08/23 09:31 DC 02/08/23 09:39 100 ML Vital Signs/I&O 02/08/23 02/08/23 09:17 09:26 Temp 37.5 Pulse 22 Resp 20 B/P (MAP) 156/82 (106) Pulse Ox 88 88 O2 Delivery Non Rebreather Non Rebreather O2 Flow Rate 15.00 FiO2 100 Progress Progress Note : Progress Note Patient with seizure-like activity upon arrival. Patient was given additional 2 of Ativan and it improved. Patient was then given 1500 loading dose of Keppra with no further seizure-like activity. Patient's labs were ordered reviewed with mild elevated white count likely due to seizure-like activity with no significant findings on his BMP with some minor abnormalities. Patient had both a CT and CTA that was reviewed by me with interpretation per radiology report that showed no acute hemorrhagic stroke or stroke like activity or no significant clot burden. Patient did have some left upper sided flaccidity after seizure activity resolved. He does remain not following commands. He did have spontaneous movement of his right upper extremity. I did discuss case with Dr. Bonner at [facility] neurologist. She feels at this time to proceed with just the Keppra and no further intervention. The he needs to be evaluated for new onset seizure with possible small vessel ischemia. Patient to be transferred to higher level of care for further evaluation and neurology consultation. Patient remained hemodynamically stable. Patient's x-ray was reviewed and shows a persistent right sided opacity compared to previous chest x-ray. I will start him on 1 g of Rocephin for potential pneumonia. There is no indications of recent illness per family. patient was accepted by hospitalist Dr. Bobby Villegas for transfer for further neurologic evaluation and work-up. Patient remained stable throughout the stay. I did discuss CODE STATUS with patient's family at this time they are unsure if they would want to have patient intubated if needed. Currently he is stable and clinically is okay not have to have intubation. They will address that if needed due to deep deterioration of his symptoms Initial ECG Impression Date: Feb 08, 2023 Initial ECG Impression Time: 09:50 Initial ECG Rate: 108 Initial ECG Rhythm: S.Tach Initial ECG Impression: Nonspecific Changes Comment no acute changes noted Diagnostic Imaging Diagonstic Imaging: Xray Plain Films/CT/US/NM/MRI: chest Comments Date of Exam:02/08/23 CHEST 1 VIEW AP/PA ONLY Indication: Seizure and unresponsive. Time of Exam: 9:49 AM Correlation is made with prior chest from 01/11/2023. Heart size stable. Patchy airspace opacities right lung base persists suggestive of pneumonia. Remainder of the lung ortega are clear. No effusion or pneumothorax is identified. Postop changes of reverse shoulder arthroplasty on the left are again noted. IMPRESSION: Right basilar pneumonia. Reviewed: Reviewed by Me, Reviewed/Discussed Diagonstic Imaging: CT Plain Films/CT/US/NM/MRI: head Comments CT ANGIO HEAD/NECK PROCEDURE: CT angiography of the head and CT angiography of the neck with and without contrast. TECHNIQUE: Contiguous noncontrast images were obtained from the skull base through the vertex. After intravenous contrast administration, helical CT angiography of the neck was performed. Source data was reformatted into 3D MIP projections. Delayed post contrast acquisition was also obtained. Auto Exposure Controls were utilized during the CT exam to meet ALARA standards for radiation dose reduction. INDICATION: Unresponsive. Seizure. Concern for stroke. Comparison: CT head performed earlier the same date. FINDINGS: CTA Neck: The visualized portions of the aortic arch demonstrate no evidence of aneurysm or dissection. There is conventional branching pattern of the great vessels of the aorta. The brachiocephalic artery is normal in course and caliber. The right and left common carotid origins are unremarkable. The origin of the left subclavian artery is patent. The common carotid arteries and internal carotid arteries demonstrate a tortuous course. There is a small amount of calcified atherosclerotic plaque in the bilateral carotid bulbs and proximal internal carotid arteries without flow-limiting stenosis. No evidence of dissection in the carotid systems. The external carotid arteries are patent and unremarkable. The vertebral arteries are codominant. The origin of the right vertebral artery is seen and is unremarkable. The origin of the left vertebral artery is seen and is unremarkable. There is no focal stenosis seen within the neck. There is no dissection. The vertebral arteries are well visualized to up to the level of the basilar artery. The osseous structures of the cervical spine are unremarkable. Dependent opacities are seen in the lungs. CTA brain: Minimal atherosclerotic plaque is seen in the [place]ansen of the bilateral terminal internal carotid arteries without significant stenosis. No stenosis is seen in the bilateral anterior, middle, and posterior cerebral arteries. There is origin of the left MANAGER KNOWLEDGE. No evidence of aneurysm the [place]. In the posterior circulation, both of the vertebral arteries demonstrate normal opacification. Both the right and left PICA arteries are identified. The basilar artery is normal in course and caliber. The terminal branch vessels including the superior cerebellar arteries unremarkable. IMPRESSION: 1. No stenosis or aneurysm in the [place]. No large vessel occlusion. 2. No stenosis or dissection the bilateral carotid and vertebral arteries. Reviewed: Reviewed by Me, Reviewed/Discussed CT Results/Progress Notes Date of Exam:02/08/23 CT HEAD WO Clinical Indication: Patient arrived unresponsive and altered mental status. Exam: Axial CT scan of the brain without IV contrast with coronal and sagittal reformatted images. Auto Exposure Controls were utilized during the CT exam to meet ALARA standards for radiation dose reduction. Comparison: Head CT without contrast dated 01/11/2023. Findings: There is skull streak artifact and motion artifact limiting evaluation of the brainstem, posterior fossa, and portions of the brain in the periphery near the skull. There is no evidence of acute cerebral infarct, intracranial hemorrhage, or gross mass effect. There is diffuse brain parenchymal volume loss again seen. 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 There is normal gómez-white matter distinction. There is no significant midline shift or herniation. There is no evidence of hydrocephalus. The basal cisterns are unremarkable. 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 Otherwise, the skull, extracranial soft tissue, and orbits are unremarkable. There is mild ethmoid sinus mucosal thickening. Temporal bones show no significant abnormality. Impression: 1: There is no definite CT evidence of interval acute cerebral infarction, intracranial hemorrhage, or mass seen. The diffuse low attenuation changes throughout the brain parenchyma may possibly obscure more subtle findings. If there is clinical concern for acute cerebral infarction, MRI of the brain would better evaluate. 2: There is no major change involving the diffuse patchy confluent areas of low-attenuation white matter changes throughout both cerebral hemispheres which may be related to chronic small vessel ischemic disease and leukoaraiosis. Departure Impression Primary Impression: Observed seizure-like activity Disposition: XF SHT-TRM HOSP Condition: Stable Transfer Transfer Reason: Exceeds level of care Transfer Progress Notes accepting Dr Bobby Villegas Transfer Facility: [facility] Method of Transfer: EMS Departure-Patient Inst. Referrals: LESLYE MOONEY MD (PCP) Primary Care Physician ANTONIA NICHOLS DO Feb 08, 2023 08:55
[2023-02-08] MEDS ORDERED: levETIRAcetam 1000 mg/NS 100ml 100 ML IV ONE (09:09)
--- NOTE | 2023-02-08 09:13 | Diagnostic Imaging Report ---
Clinical Indication: Patient arrived unresponsive and altered mental status. Exam: Axial CT scan of the brain without IV contrast with coronal and sagittal reformatted images. Auto Exposure Controls were utilized during the CT exam to meet ALARA standards for radiation dose reduction. Comparison: Head CT without contrast dated 01/11/2023. Findings: There is skull streak artifact and motion artifact limiting evaluation of the brainstem, posterior fossa, and portions of the brain in the periphery near the skull. There is no evidence of acute cerebral infarct, intracranial hemorrhage, or gross mass effect. There is diffuse brain parenchymal volume loss again seen. 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 There is normal gómez-white matter distinction. There is no significant midline shift or herniation. There is no evidence of hydrocephalus. The basal cisterns are unremarkable. 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 Otherwise, the skull, extracranial soft tissue, and orbits are unremarkable. There is mild ethmoid sinus mucosal thickening. Temporal bones show no significant abnormality. Impression: 1: There is no definite CT evidence of interval acute cerebral infarction, intracranial hemorrhage, or mass seen. The diffuse low attenuation changes throughout the brain parenchyma may possibly obscure more subtle findings. If there is clinical concern for acute cerebral infarction, MRI of the brain would better evaluate. 2: There is no major change involving the diffuse patchy confluent areas of low-attenuation white matter changes throughout both cerebral hemispheres which may be related to chronic small vessel ischemic disease and leukoaraiosis. Dictated by: Dictated on workstation # [id number]
[2023-02-08 09:14] LABS: BASOPHILS % (AUTO) 0 % (0-10); EOSINOPHILS % (AUTO) 0 % (0-10); HEMATOCRIT 46 % (40-54); HEMOGLOBIN 16.3 g/dL (13.3-17.7); LYMPHOCYTES # (AUTO) 0.6 10^3/uL (1.0-4.0); LYMPHOCYTES % (AUTO) 3 % (12-44); MEAN CORPUSCULAR HEMOGLOBIN 30 pg (25-34); MEAN CORPUSCULAR HGB CONC 35 g/dL (32-36); MEAN CORPUSCULAR VOLUME 85 fL (80-99); MEAN PLATELET VOLUME 10.9 fL (9.0-12.2); MONOCYTES # (AUTO) 0.7 10^3/uL (0.0-1.0); MONOCYTES % (AUTO) 5 % (0-12); NEUTROPHILS # (AUTO) 14.9 10^3/uL (1.8-7.8); NEUTROPHILS % (AUTO) 92 % (42-75); PLATELET COUNT 277 10^3/uL (130-400); WHITE BLOOD COUNT 16.3 10^3/uL (4.3-11.0)
[2023-02-08] MEDS ORDERED: NS IV ONE (09:15)
[2023-02-08] MEDS ORDERED: LEVETIRACETAM IV ONE (09:15)
[2023-02-08 09:29] LABS: PROTHROMBIN TIME PATIENT 13.7 SEC (12.2-14.7)
[2023-02-08] MEDS ORDERED: NS 100 ML (IVPB) BAG IV ONE (09:30)
[2023-02-08] MEDS ORDERED: IOHEXOL 350 MG/ML 100 ML (OMNIPAQUE 350) VIAL IV ONE (09:30)
[2023-02-08] MEDS ORDERED: HOLD METFORMIN - RECEIVED CONTRAST 20 ML VIAL IV SCH (09:30)
[2023-02-08 09:34] LABS: BAND NEUTROPHILS 4 %; BASOPHILS % (MANUAL) 0 %; EOSINOPHILS % (MANUAL) 0 %; LYMPHOCYTES % (MANUAL) 2 %; MONOCYTES % (MANUAL) 4 %; NEUTROPHILS % (MANUAL) 90 %; PLATELET ESTIMATE NORMAL; RBC MORPH NORMAL
[2023-02-08 09:35] LABS: ALANINE AMINOTRANSFERASE 33 U/L (0-55); ALBUMIN 4.2 GM/DL (3.2-4.5); ALKALINE PHOSPHATASE 86 U/L (40-136); BILIRUBIN,TOTAL 0.5 MG/DL (0.1-1.0); BUN/CREATININE RATIO 13; CALCIUM 10.5 MG/DL (8.5-10.1); CARBON DIOXIDE 16 MMOL/L (21-32); CHLORIDE 92 MMOL/L (98-107); CREATININE SERUM 0.94 MG/DL (0.60-1.30); GFR ESTIMATED 81; GLUCOSE 244 MG/DL (70-105); MAGNESIUM 1.9 MG/DL (1.6-2.4); SODIUM 133 MMOL/L (135-145); TOTAL PROTEIN 6.8 GM/DL (6.4-8.2)
[2023-02-08 09:53] LABS: BILIRUBIN,URINE NEGATIVE (NEGATIVE); CLARITY,URINE CLEAR; COLOR,URINE YELLOW; GLUCOSE, URINE (UA) NEGATIVE (NEGATIVE); KETONES,URINE NEGATIVE (NEGATIVE); LEUKOCYTE ESTERASE ,URINE NEGATIVE (NEGATIVE); NITRITE,URINE NEGATIVE (NEGATIVE); PROTEIN,URINE 1+ (NEGATIVE)
--- NOTE | 2023-02-08 10:04 | Diagnostic Imaging Report ---
PROCEDURE: CT angiography of the head and CT angiography of the neck with and without contrast. TECHNIQUE: Contiguous noncontrast images were obtained from the skull base through the vertex. After intravenous contrast administration, helical CT angiography of the neck was performed. Source data was reformatted into 3D MIP projections. Delayed post contrast acquisition was also obtained. Auto Exposure Controls were utilized during the CT exam to meet ALARA standards for radiation dose reduction. INDICATION: Unresponsive. Seizure. Concern for stroke. Comparison: CT head performed earlier the same date. FINDINGS: CTA Neck: The visualized portions of the aortic arch demonstrate no evidence of aneurysm or dissection. There is conventional branching pattern of the great vessels of the aorta. The brachiocephalic artery is normal in course and caliber. The right and left common carotid origins are unremarkable. The origin of the left subclavian artery is patent. The common carotid arteries and internal carotid arteries demonstrate a tortuous course. There is a small amount of calcified atherosclerotic plaque in the bilateral carotid bulbs and proximal internal carotid arteries without flow-limiting stenosis. No evidence of dissection in the carotid systems. The external carotid arteries are patent and unremarkable. The vertebral arteries are codominant. The origin of the right vertebral artery is seen and is unremarkable. The origin of the left vertebral artery is seen and is unremarkable. There is no focal stenosis seen within the neck. There is no dissection. The vertebral arteries are well visualized to up to the level of the basilar artery. The osseous structures of the cervical spine are unremarkable. Dependent opacities are seen in the lungs. CTA brain: Minimal atherosclerotic plaque is seen in the [place] of the bilateral terminal internal carotid arteries without significant stenosis. No stenosis is seen in the bilateral anterior, middle, and posterior cerebral arteries. There is origin of the left PHYSIOTHERAPIST'S ASSISTANT. No evidence of aneurysm the [place]. In the posterior circulation, both of the vertebral arteries demonstrate normal opacification. Both the right and left PICA arteries are identified. The basilar artery is normal in course and caliber. The terminal branch vessels including the superior cerebellar arteries unremarkable. IMPRESSION: 1. No stenosis or aneurysm in the [place]. No large vessel occlusion. 2. No stenosis or dissection the bilateral carotid and vertebral arteries. Dictated by: Dictated on workstation # [id number]
[2023-02-08 10:06] LABS: BACTERIA,URINE TRACE /HPF; SQUAMOUS EPITHELIAL CELL,UR RARE /HPF; WBC,URINE 0-2 /HPF
[2023-02-08 10:07] LABS: HYALINE CASTS, URINE 25-50 /LPF
--- NOTE | 2023-02-08 10:11 | Diagnostic Imaging Report ---
Indication: Seizure and unresponsive. Time of Exam: 9:49 AM Correlation is made with prior chest from 01/11/2023. Heart size stable. Patchy airspace opacities right lung base persists suggestive of pneumonia. Remainder of the lung ortega are clear. No effusion or pneumothorax is identified. Postop changes of reverse shoulder arthroplasty on the left are again noted. IMPRESSION: Right basilar pneumonia. Dictated by: Dictated on workstation # [id number]
[2023-02-08] MEDS ORDERED: NS IV 1000 ML 1,000 ML IV STA (10:21)
[2023-02-08] MEDS ORDERED: cefTRIAXone IV/IM 1,000 MG in NS (IVPB) 50 ML 50 ML IV STA (10:23)
[2023-02-08] MEDS ORDERED: cefTRIAXone 1,000 MG VIAL IV/IM ONE (10:27)
[2023-02-08 11:45] VITALS: BP 167/86
== END 2023-02-08 12:34 | disposition short-term general hospital (02) ==
LOC: EDUNIT# 08:52 → ER FS 08:52
DX: R25.8 Other abnormal involuntary movements (principal); R40.4 Transient alteration of awareness
CPT/HCPCS: 36415; 51702; 70450; 70496; 70498; 71045; 80053; 81000; 82947; 83735; 84484; 85007; 85027; 85610; 85730; 93005; 93041; 96361; 96365; 96367; Q9967